=== PATIENT | female | born 1980 | race Caucasian/White ===

== ENCOUNTER 2017-06-27 11:40 | Emergency (ER) | payer SELFPAY ==
[~2017-06-27] VITALS: Ht 157.5 cm; Wt 77.4 kg
[2017-06-27] MEDS ORDERED: ACETAMINOPHEN 325 MG TABLET PO ONE (12:30)
[2017-06-27] MEDS ORDERED: ACETAMINOPHEN 325 MG TABLET ONE (12:32)
[2017-06-27 12:42] LABS: HCG UR LOT HCG7030192
[2017-06-27 12:43] LABS: HEMATOCRIT 42.3 % (34.6-47.8)
[2017-06-27 12:52] LABS: ASPARTATE AMINO TRANSFERASE 9 U/L (15-37); BLOOD UREA NITROGEN 13 mg/dL (7-18)
[2017-06-27 13:02] LABS: HCG UR OBC PASS
[2017-06-27 14:39] VITALS: BP 104/76
== END 2017-06-27 14:39 | disposition home or self-care (01) ==
LOC: ED 14:35
DX: N30.90 Cystitis, unspecified without hematuria (principal)
CPT/HCPCS: 36415; 76830; 80053; 81001; 81025; 83690; 84703; 85025; 87077; 87086; 87186; 99285